=== PATIENT | female | born 1995 | race Caucasian/White ===

== ENCOUNTER → 2020-01-22 | Outpatient (REF) | payer OTHER | LOC: M PLALAB 13:10 | PROVIDERS: ATTEND Advanced Practice Midwife | DX: O20.0 Threatened abortion (principal); Z3A.00 Weeks of gestation of pregnancy not specified ==

== ENCOUNTER → 2020-01-24 | Outpatient (CLI) | payer OTHER | LOC: M LAB 14:49 | PROVIDERS: ATTEND Advanced Practice Midwife | DX: O20.0 Threatened abortion (principal) ==

== ENCOUNTER 2020-06-25 13:47 | Emergency (ER) | payer OTHER ==
[~2020-06-25] VITALS: Ht 177.8 cm; Wt 192.0 kg
[2020-06-25] MEDS ORDERED: MULTTAB20 PO (14:11)
[2020-06-25 16:02] LABS: BASO % 0.5 % (0.0-1.0); EOS # 0.2 10^3/uL (0.0-0.5); EOS % 2.4 % (0.0-3.0); HEMATOCRIT 38.8 % (36.0-47.0); HEMOGLOBIN 13.2 g/dl (12.0-15.5); LYMPH # 2.8 10^3/uL (1.5-5.0); LYMPH % 37.6 % (24.0-44.0); MEAN CORPUSCULAR HEMOGLOBIN 32.8 pg (27.0-33.0); MEAN CORPUSCULAR VOLUME 96.5 fl (80.0-96.0); MONO # 0.5 10^3/uL (0.0-0.8); MONO % 6.4 % (0.0-5.0); NEUTROPHILS # 3.9 10^3/uL (1.5-8.5); NEUTROPHILS % 52.7 % (36.0-66.0); PLATELET COUNT, AUTOMATED 285 10^3/uL (150-450); RED BLOOD COUNT 4.02 10^6/uL (4.00-5.40); WHITE BLOOD COUNT 7.5 10^3/uL (4.0-10.0)
[2020-06-25 17:09] LABS: CHLAMYDIA DNA AMPLIFICATION NEGATIVE (NEGATIVE); GC DNA AMPLIFICATION NEGATIVE (NEGATIVE)
[2020-06-25 18:00] VITALS: BP 119/65
[2020-06-26] MEDS ORDERED: IBUP80TA PO (13:41)
[2020-06-26] MEDS ORDERED: ZOFR4TAB16 PO (13:41)
[2020-06-26] MEDS ORDERED: OXYC1TAB23 PO (13:42)
== END 2020-06-25 18:05 | disposition home or self-care (01) ==
LOC: M ED 13:47
DX: O36.4XX1 Maternal care for intrauterine death, fetus 1 (principal); Z20.828 Contact with and (suspected) exposure to other viral communicable diseases
CPT/HCPCS: 36415; 84702; 85025; 86901; 87210; 87661; 99283; U0002

== ENCOUNTER 2020-06-26 09:56 | Day surgery (SDC) | payer OTHER ==
[~2020-06-26] VITALS: Ht 177.8 cm; Wt 88.5 kg
[~2020-06-26 09:56] MED LIST: MULTTAB20 PO
[2020-06-26 10:00] VITALS: BP 114/71
[2020-06-26] MEDS ORDERED: fentaNYL 100 MCG/2 ML INJECTION (J3010) As Ordered ONE ×2 (10:37→13:06)
[2020-06-26] MEDS ORDERED: MIDAZOLAM INJ 2MG/2ML VIAL (J2250 PER 1MG) As Ordered ONE (10:38)
[2020-06-26] MEDS ORDERED: LIDOCAINE 2% 100MG/5ML SDV (FOR ANES.) As Ordered ONE (10:38)
[2020-06-26] MEDS ORDERED: propofoL 200 MG/20 ML VIAL As Ordered ONE (10:38)
[2020-06-26] MEDS ORDERED: METOCLOPRAMIDE INJ 10MG/2ML VIAL (J2765 PER 1) As Ordered ONE (10:39)
[2020-06-26] MEDS ORDERED: KETOROLAC 60MG 2ML VIAL As Ordered ONE (10:39)
[2020-06-26] MEDS ORDERED: ONDANSETRON 4MG/2ML VIAL As Ordered ONE ×2 (10:39→13:05)
[2020-06-26] MEDS ORDERED: dexameTHASONE 4 MG/ML 1ML VIAL (J1100 PER 1MG) As Ordered ONE (10:39)
[2020-06-26] MEDS ORDERED: DOXYCYCLINE HYCLATE 100 MG in D5W MINI-BAG PLUS 100 ML IV ONE (11:00)
[2020-06-26] MEDS ORDERED: LR 1,000 ML IV SCH ×2 (11:00→14:00)
[2020-06-26] MEDS ORDERED: DOXYCYCLINE HYCLATE 100MG/10ML VIAL As Ordered ONE (11:22)
[2020-06-26 11:33] LABS: HEMATOCRIT 39.9 % (36.0-47.0); HEMOGLOBIN 13.7 g/dl (12.0-15.5); MEAN CORPUSCULAR HEMOGLOBIN 32.6 pg (27.0-33.0); MEAN CORPUSCULAR HGB CONC 34.3 g/dl (32.0-36.5); PLATELET COUNT, AUTOMATED 278 10^3/uL (150-450); WHITE BLOOD COUNT 5.8 10^3/uL (4.0-10.0)
[2020-06-26] MEDS ORDERED: DOXYCYCLINE HYCLATE 100MG/10ML VIAL IV ONE (11:44)
[2020-06-26] MEDS ORDERED: METHYLERGONOVINE MALEATE 0.2 MG/ML VIAL (J2210) As Ordered ONE (12:10)
[2020-06-26] MEDS ORDERED: oxyCODONE 5MG TAB As Ordered ONE (13:05)
--- NOTE | 2020-06-26 13:25 | ROOPDOC ---
[facility] Report Of Operation Report of Operation DATE OF PROCEDURE: 06/26/20 PREPROCEDURE DIAGNOSES: First trimester miscarriage, missed . POSTPROCEDURE DIAGNOSES: Same. PROCEDURE: Suction D&C. SURGEON: Skip Santo DO FACOG ELECTRONIC MUSICAL INSTRUMENT REPAIRER: none ANESTHESIA: General via LMA ESTIMATED BLOOD LOSS: Approximately 1100 mL. IV FLUIDS REPLACED: 1400 mL LR UOP: in and out cath, 200-300mL COMPLICATIONS: none. SPECIMENS: products of conception, intrauterine tissue. REMARKS: Transvaginal and Abdominal US done intraoperatively to confirm absence of retained products of conception. PREOPERATIVE / PROPHYLACTIC ANTIBIOTIC: Doxycycline 100mg IV x1. DESCRIPTION OF PROCEDURE: The patient was counseled, consented on the risks, benefits, indications and alternatives procedure. Informed consent was obtained. She was taken to the operating room with an IV running and placed on the operating table in dorsal supine position. Gen. anesthesia was administered and the airway was secured without any difficulty. She was prepared and draped in the normal sterile fashion. She was placed in the high lithotomy position. A time out was performed per protocol. The bladder was drained with a sterile in and out catheter. Sterile speculum was placed with good visualization of the cervix. The cervix was grasped with a single-tooth tenaculum at the anterior lip and downward traction was applied. The cervix was sequentially dilated with Ramo dilators up to a #20. A size 9 curved Vacurette was placed trans-cervically into the intrauterine cavity. Suction was activated. Tissue and blood return was consistent with products of conception. However,preoperatively she was reported to be approximately 8-9 weeks gestation, the amount of tissue obtained was not consistent with this gestation. Although she had a significant amount of bleeding initially, I expected more tissue. Methergine 0.2 mg IM was administered. The decision was made to perform an intraoperative ultrasound. With both transvaginal and abdominal ultrasound, there was no evidence of retained products of conception, there was no evidence of adnexal mass bilaterally or free fluid, and there was only evidence of a relatively large hematometra. The hematometra was evacuated under ultrasound guidance with a size 8 Vacurette. After removal of the Vacurette, a sharp curettage was performed with minimal tissue and blood return. Minimal bleeding from the cervical os was noted. The patient's vitals were normal and stable. The decision was made to conclude the procedure. Single-tooth tenaculum was removed from the cervix and the tenaculum sites were noted to be hemostatic. Again, minimal bleeding from the cervical os was noted. All instruments were removed from the vagina. Sponge and instrument counts were correct per protocol. The patient was transferred to the PACU in good and stable condition. Skip Santo DO FACOG. SKIP SANTO DO Jun 26, 2020 13:25
[2020-06-26] MEDS ORDERED: ZOFR4TAB16 PO (13:41)
[2020-06-26] MEDS ORDERED: IBUP80TA PO (13:41)
[2020-06-26] MEDS ORDERED: OXYC1TAB23 PO (13:42)
[2020-06-26 13:45] VITALS: BP 113/72
[2020-06-26] MEDS ORDERED: ONDANSETRON 4MG/2ML VIAL IV PRN (14:00)
[2020-06-26] MEDS ORDERED: PERCOCET 5MG/325MG TAB PO PRN (14:00)
[2020-06-26] MEDS ORDERED: DOCUSATE SODIUM 100 MG CAP PO PRN (14:00)
[2020-06-26] MEDS ORDERED: fentaNYL 100 MCG/2 ML INJECTION (J3010) IV PRN (14:00)
[2020-06-26] MEDS ORDERED: diphenhydrAMINE 50MG/ML VIAL (J1200) IV PRN (14:00)
[2020-06-26] MEDS ORDERED: oxyCODONE 5MG TAB PO PRN (14:00)
[2020-06-26] MEDS: LR 1,000 ML IV SCH ×2 (14:00→14:02)
[2020-06-26] MEDS ORDERED: PROMETHAZINE 25 MG TAB PO PRN (14:00)
[2020-06-26] MEDS ORDERED: ONDANSETRON 4 MG TAB PO PRN (14:00)
[2020-06-26] MEDS ORDERED: MORPHINE 4 MG/ML 1ML VIAL/SYRINGE (J2270) IV PRN (14:00)
[2020-06-26 14:45] VITALS: BP 123/74
[2020-06-26 16:32] LABS: HEMATOCRIT 32.2 % (36.0-47.0); MEAN CORPUSCULAR HEMOGLOBIN 32.8 pg (27.0-33.0); MEAN CORPUSCULAR HGB CONC 34.8 g/dl (32.0-36.5); MEAN CORPUSCULAR VOLUME 94.4 fl (80.0-96.0); PLATELET COUNT, AUTOMATED 253 10^3/uL (150-450); RED BLOOD COUNT 3.41 10^6/uL (4.00-5.40); WHITE BLOOD COUNT 11.2 10^3/uL (4.0-10.0)
[2020-06-26 16:36] LABS: HEMOGLOBIN 11.2 g/dl (12.0-15.5)
[2020-06-26] MEDS ORDERED: KETOROLAC 30 MG/ML 1ML VIAL IV PRN (17:00)
--- NOTE | 2020-06-26 18:07 | REPVR ---
PROCEDURE INFORMATION: Exam: US , Transvaginal Exam date and time: 06/26/2020 1:15 PM Age: 25 years old Clinical indication: Condition or disease; Lmp or gestational age (weeks): 8; Other: D&c; 1st ; ; Additional info: Intraoperative for bleeding TECHNIQUE: Imaging protocol: Real-time transvaginal obstetrical ultrasound of the maternal pelvis and a first trimester with image documentation. Transvaginal imaging was used for better evaluation of the fetus and adnexa. COMPARISON: No relevant prior studies available. FINDINGS: Gestation: No yolk sac demonstrated. No pole demonstrated. MATERNAL: Uterus: Uterus measures 11 x 7.3 x 7.5 cm. Endometrial echo complex measures 2.9 cm. Endometrial cavity filled with hypoechoic fluid with internal echoes consistent with hemorrhage. Other findings: Adnexal structures unremarkable. IMPRESSION: Widened endometrial cavity which appears to be filled with hypoechoic hemorrhage without evidence of a pole yolk sac or tissue. Findings consistent with postprocedural hemorrhage/early loss. Electronically signed by: Mahendra Cortes On 06/26/2020 18:06:48 PM
== END 2020-06-26 17:00 | disposition home or self-care (01) ==
LOC: M OPCLI5PR 09:56 → M MS5PR 09:56 → M OPCLI5PR 17:00
PROVIDERS: ATTEND Obstetrics & Gynecology
DX: O02.1 Missed abortion (principal)
CPT/HCPCS: 36415; 59820; 76817; 85027; 86850; 86900; 86901; 88305; J1100; J1885; J2210; J2250; J2405; J2765; J3010

== ENCOUNTER → 2021-04-15 | Outpatient (CLI) | payer OTHER ==
[~2021-04-15] MED LIST changes: +IBUP80TA PO; +OXYC1TAB23 PO; +ZOFR4TAB16 PO
== END ==
LOC: M PLALAB 09:08
PROVIDERS: ATTEND Obstetrics & Gynecology
DX: O20.9 Hemorrhage in early pregnancy, unspecified (principal); Z3A.00 Weeks of gestation of pregnancy not specified

== ENCOUNTER → 2021-04-17 | Outpatient (CLI) | payer OTHER | LOC: M LAB 08:36 | PROVIDERS: ATTEND Obstetrics & Gynecology | DX: O20.9 Hemorrhage in early pregnancy, unspecified (principal); Z3A.00 Weeks of gestation of pregnancy not specified ==

== ENCOUNTER → 2021-04-18 | Outpatient (REF) | payer OTHER | LOC: M PLALAB 09:49 | PROVIDERS: ATTEND Obstetrics & Gynecology | DX: Z53.9 Procedure and treatment not carried out, unspecified reason (principal) ==

== ENCOUNTER → 2021-04-18 | Outpatient (CLI) | payer OTHER ==
[2021-04-18 14:20] LABS: HEMATOCRIT 39.6 % (36.0-47.0); HEMOGLOBIN 13.7 g/dl (12.0-15.5); MEAN CORPUSCULAR HEMOGLOBIN 33.4 pg (27.0-33.0); MEAN CORPUSCULAR HGB CONC 34.6 g/dl (32.0-36.5); MEAN CORPUSCULAR VOLUME 96.6 fl (80.0-96.0); PLATELET COUNT, AUTOMATED 273 10^3/uL (150-450); WHITE BLOOD COUNT 6.6 10^3/uL (4.0-10.0)
[2021-04-18 14:58] LABS: GC DNA AMPLIFICATION NEGATIVE (NEGATIVE)
[2021-04-18 15:34] LABS: HIV 1&2 SCREEN CENTAUR NEGATIVE (NEGATIVE)
== END ==
LOC: M PLALAB 10:17
PROVIDERS: ATTEND Obstetrics & Gynecology
DX: O26.21 Pregnancy care for patient with recurrent pregnancy loss, first trimester (principal); Z3A.00 Weeks of gestation of pregnancy not specified

== ENCOUNTER → 2021-06-20 | Outpatient (CLI) | payer OTHER ==
--- NOTE | 2021-06-22 08:55 | REP ---
INDICATION: ANATOMY COMPARISON: None. TECHNIQUE: Transabdominal obstetrical ultrasound with color Doppler evaluation. FINDINGS: Examination demonstrates a single live intrauterine in variable presentation. motion is identified by technologist. Placenta is noted anterior and grade 1 without evidence for placenta previa or abruption. Amniotic fluid volume is normal. Cervix measures 5.1 cm in length and appears closed.. Selected gestational age: 20 weeks 0 days with YAMIL 11/07/2021. Gestational age by current measurements 21 weeks 0 days with YAMIL 10/31/2021. FHR equals 167 beats per minute. Estimated weight 401 grams (95thpercentile). Anatomical assessment demonstrates normal structures including cranium, choroid plexus, cavum, cerebellum/posterior fossa, facial features, lungs, four-chamber heart/ventricular outflow tracts, diaphragm, stomach, cord insertion/three-vessel cord, kidneys/bladder, and extremities. IMPRESSION: Single live intrauterine in variable presentation demonstrating upper normal growth. Limited evaluation of the spine. Remainder of the anatomical assessment is complete and normal. <Electronically signed by Beni Pena > 06/22/21 [id number]
== END ==
LOC: M WHC 11:05
PROVIDERS: ATTEND Advanced Practice Midwife
DX: Z34.82 Encounter for supervision of other normal pregnancy, second trimester (principal); Z3A.20 20 weeks gestation of pregnancy

== ENCOUNTER → 2021-08-02 | Outpatient (CLI) | payer OTHER ==
--- NOTE | 2021-08-02 13:35 | REP ---
INDICATION: F/U ANATOMY. FOLLOW-UP SPINE COMPARISON: 06/20/2021 TECHNIQUE: Transabdominal scanning FINDINGS: Multiple ultrasonographic images of the gravid uterus shows a single living intrauterine gestation in variable presentation. Doppler interrogation of the heart shows a heart rate of 150 beats per minute. The placenta is anterior and not low-lying. The cervix measures 4.6 cm in length and is closed. The subjective amniotic fluid volume is within normal limits. BPD: 7 cm 20 weeks 2 days HC: 25.8 cm 28 weeks 0 days AC: 23.6 cm 28 weeks 0 days FL: 5.1 cm 27 weeks 3 days The estimated weight is 1126 g which is greater than the 97th percentile. Secondary to the lie the spine spine was again seen suboptimally. IMPRESSION: Single living intrauterine gestation as described above with an estimated gestational age of 28 weeks 1 day via composite criteria and an estimated date of delivery of 10/24/2021 by today's exam. The spine was still seen suboptimally. Follow-up is recommended. <Electronically signed by Basilio Mckeon > 08/02/21 [id number]
== END ==
LOC: M WHC 08:56
PROVIDERS: ATTEND Advanced Practice Midwife
DX: O26.22 Pregnancy care for patient with recurrent pregnancy loss, second trimester (principal)

== ENCOUNTER → 2021-08-11 | Outpatient (CLI) | payer OTHER ==
[~2021-08-11] MED LIST changes: +COLA100C5 PO; +PERCOCET PO; +TUMS500C PO
[2021-08-11 14:01] LABS: HEMATOCRIT 37.4 % (36.0-47.0); HEMOGLOBIN 12.2 g/dl (12.0-15.5); MEAN CORPUSCULAR HGB CONC 32.6 g/dl (32.0-36.5); MEAN CORPUSCULAR VOLUME 101.1 fl (80.0-96.0); PLATELET COUNT, AUTOMATED 240 10^3/uL (150-450); WHITE BLOOD COUNT 9.3 10^3/uL (4.0-10.0)
== END ==
LOC: M PLALAB 08:40
PROVIDERS: ATTEND Advanced Practice Midwife
DX: O26.22 Pregnancy care for patient with recurrent pregnancy loss, second trimester (principal); Z3A.00 Weeks of gestation of pregnancy not specified
CPT/HCPCS: 36415; 82950; 85027; 86850; 86900; 86901; G0463

== ENCOUNTER → 2021-08-25 | Outpatient (CLI) | payer OTHER | LOC: M WHC 12:25 | PROVIDERS: ATTEND Obstetrics & Gynecology | DX: Z34.82 Encounter for supervision of other normal pregnancy, second trimester (principal); Z3A.32 32 weeks gestation of pregnancy ==

== ENCOUNTER 2021-10-08 23:15 | Outpatient (CLI) | payer OTHER ==
[~2021-10-08] VITALS: Ht 177.8 cm; Wt 111.2 kg
[~2021-10-08 23:15] MED LIST changes: -COLA100C5 PO; -PERCOCET PO; -TUMS500C PO
[2021-10-08 23:50] VITALS: BP 123/85
[2021-10-09 00:25] VITALS: BP 130/60
[2021-10-09 01:27] VITALS: BP 126/63
[2021-10-09 02:35] VITALS: BP 131/66
== END 2021-10-09 02:55 | disposition home or self-care (01) ==
LOC: M LDO 23:15
PROVIDERS: ATTEND Obstetrics & Gynecology
DX: O26.893 Other specified pregnancy related conditions, third trimester (principal); R07.9 Chest pain, unspecified; O12.03 Gestational edema, third trimester; Z3A.35 35 weeks gestation of pregnancy
CPT/HCPCS: 59025; 93005; G0378; G0463

== ENCOUNTER → 2021-10-14 | Outpatient (REF) | payer OTHER ==
[~2021-10-14] MED LIST changes: +COLA100C5 PO; +PERCOCET PO; +TUMS500C PO
== END ==
LOC: M SFHCWAGY 12:37
PROVIDERS: ATTEND Obstetrics & Gynecology
DX: Z34.83 Encounter for supervision of other normal pregnancy, third trimester (principal); Z3A.00 Weeks of gestation of pregnancy not specified
CPT/HCPCS: 87081; G0463

== ENCOUNTER → 2021-10-17 | Outpatient (CLI) | payer OTHER ==
[~2021-10-17] MED LIST changes: -COLA100C5 PO; -PERCOCET PO; -TUMS500C PO
== END ==
LOC: M WHC 08:53
PROVIDERS: ATTEND Advanced Practice Midwife
DX: Z34.83 Encounter for supervision of other normal pregnancy, third trimester (principal); Z3A.37 37 weeks gestation of pregnancy

== ENCOUNTER 2021-10-31 17:21 | Inpatient (IN) | payer OTHER ==
[~2021-10-31] VITALS: Ht 177.8 cm; Wt 112.8 kg
[~2021-10-31 17:21] MED LIST changes: -COLA100C5 PO; -PERCOCET PO; -TUMS500C PO
[2021-10-31 17:46] VITALS: BP 146/83
[2021-10-31] MEDS ORDERED: TUMS500C PO (17:48)
[2021-10-31 17:50] VITALS: BP 133/85
[2021-10-31] MEDS ORDERED: LACTATED RINGER'S 1000 ML IV STA (18:33)
[2021-10-31] MEDS ORDERED: METHYLERGONOVINE MALEATE 0.2 MG/ML VIAL (J2210) IM PRN (18:35)
[2021-10-31] MEDS ORDERED: TRANEXAMIC ACID INJection 1,000 MG in NS 100 ML IV PRN (18:35)
[2021-10-31] MEDS ORDERED: OXYTOCIN DRIP 30 UNITS in IV 1 EA IV PRN (18:35)
[2021-10-31] MEDS ORDERED: LR 1,000 ML IV SCH ×3 (18:35→22:40)
[2021-10-31] MEDS ORDERED: ceFAZolin SOD 2 GM in IV 1 EA IV ONE (18:35)
[2021-10-31] MEDS ORDERED: CARBOPROST TROMETHAMINE 250 MCG/ML AMP IM PRN (18:35)
[2021-10-31] MEDS ORDERED: BICITRA 30ML SOLN UDC PO ONE (18:35)
[2021-10-31 19:07] LABS: HEMATOCRIT 35.4 % (36.0-47.0); HEMOGLOBIN 11.9 g/dl (12.0-15.5); MEAN CORPUSCULAR HEMOGLOBIN 32.4 pg (27.0-33.0); MEAN CORPUSCULAR HGB CONC 33.6 g/dl (32.0-36.5); MEAN CORPUSCULAR VOLUME 96.5 fl (80.0-96.0); PLATELET COUNT, AUTOMATED 196 10^3/uL (150-450); RED BLOOD COUNT 3.67 10^6/uL (4.00-5.40); WHITE BLOOD COUNT 8.3 10^3/uL (4.0-10.0)
[2021-10-31 20:42] VITALS: BP 128/85
[2021-10-31] MEDS ORDERED: fentaNYL 100 MCG/2 ML INJECTION As Ordered ONE (20:42)
[2021-10-31] MEDS ORDERED: OXYTOCIN INJ 10 UNITS/ML VIAL (J2590) As Ordered ONE (20:42)
[2021-10-31] MEDS ORDERED: MORPHINE PRES-FREE INJ 10 MG/10 ML VIAL (J2274) As Ordered ONE (20:42)
[2021-10-31] MEDS ORDERED: ONDANSETRON 4MG/2ML VIAL As Ordered ONE (20:42)
[2021-10-31] MEDS ORDERED: dexameTHASONE 4 MG/ML 1ML VIAL (J1100 PER 1MG) As Ordered ONE (20:42)
[2021-10-31] MEDS ORDERED: KETOROLAC 60MG 2ML VIAL As Ordered ONE (20:42)
[2021-10-31] MEDS ORDERED: METOCLOPRAMIDE INJ 10MG/2ML VIAL (J2765 PER 1) IV PRN (21:12)
[2021-10-31] MEDS ORDERED: NALOXONE INJ 0.4MG/1ML VIAL (J2310 PER 1MG) IV PRN ×2 (21:12)
[2021-10-31] MEDS ORDERED: NALBUPHINE HCL 10 MG/ML AMP (J2300) IV PRN (21:12)
[2021-10-31] MEDS ORDERED: diphenhydrAMINE 50MG/ML VIAL (J1200) IV PRN (21:12)
[2021-10-31] MEDS ORDERED: ONDANSETRON 4MG/2ML VIAL IV PRN ×3 (21:12→22:40)
[2021-10-31] MEDS ORDERED: RHOGAM 300 MCG (1500 IU) INJ (J2790) IM SCH (22:20)
[2021-10-31] MEDS ORDERED: PERCOCET 5MG/325MG TAB PO PRN ×2 (22:20)
[2021-10-31] MEDS ORDERED: SIMETHICONE 80MG CHEW TAB PO PRN (22:20)
[2021-10-31] MEDS ORDERED: OXYTOCIN DRIP 30 UNITS in IV 1 EA IV SCH (22:20)
[2021-10-31] MEDS ORDERED: MEASLES,MUMPS,RUBELLA VACCINE INJ (MMR-II) (90707) SC SCH (22:20)
[2021-10-31] MEDS ORDERED: IBUP80TA PO (22:26)
[2021-10-31] MEDS ORDERED: COLA100C5 PO (22:26)
[2021-10-31] MEDS ORDERED: PERCOCET PO (22:26)
[2021-10-31] MEDS ORDERED: MEPERIDINE INJ 25 MG/ML VIAL (J2175) IV PRN (22:40)
[2021-10-31] MEDS ORDERED: fentaNYL 100 MCG/2 ML INJECTION IV PRN (22:40)
[2021-10-31] MEDS ORDERED: NORCO, ANEXSIA 5/325MG TABLET (HYDROcodone/ACETAMINOPHEN) PO PRN (22:40)
[2021-11-01] VITALS (12 sets, daily range): BP systolic 111–134; BP diastolic 54–80
[2021-11-01] MEDS: KETOROLAC 30 MG/ML 1ML VIAL IV SCH ×3 (03:20→14:57)
[2021-11-01 06:50] LABS: HEMATOCRIT 31.7 % (36.0-47.0); HEMOGLOBIN 10.5 g/dl (12.0-15.5); MEAN CORPUSCULAR HEMOGLOBIN 32.4 pg (27.0-33.0); MEAN CORPUSCULAR HGB CONC 33.1 g/dl (32.0-36.5); MEAN CORPUSCULAR VOLUME 97.8 fl (80.0-96.0); PLATELET COUNT, AUTOMATED 177 10^3/uL (150-450); RED BLOOD COUNT 3.24 10^6/uL (4.00-5.40); WHITE BLOOD COUNT 12.3 10^3/uL (4.0-10.0)
[2021-11-01] MEDS: DOCUSATE SODIUM 100MG CAPSULE PO SCH ×2 (09:00→20:47)
[2021-11-01] MEDS: PRENATAL VITAMINS CHEWABLE TABLET PO SCH (09:01)
[2021-11-01] MEDS: IBUPROFEN 800 MG TAB PO SCH (23:17)
[2021-11-02 02:10] VITALS: BP 126/69
[2021-11-02 06:00] VITALS: BP 134/89
[2021-11-02] MEDS: IBUPROFEN 800 MG TAB PO SCH ×2 (06:21→14:35)
[2021-11-02 10:01] VITALS: BP 118/69
[2021-11-02] MEDS: PRENATAL VITAMINS CHEWABLE TABLET PO SCH (10:01)
[2021-11-02] MEDS: DOCUSATE SODIUM 100MG CAPSULE PO SCH (10:01)
[2021-11-02 14:00] VITALS: BP 118/63
== END 2021-11-02 15:45 | disposition home or self-care (01) | DRG 773 ==
LOC: M LDI 17:21 → M OBS 23:55
PROVIDERS: ADMIT Advanced Practice Midwife; ATTEND Advanced Practice Midwife
PROC: 10D00Z1 Extraction of Products of Conception, Low, Open Approach (ICD-10-PCS; principal; 2021-10-31 21:00)
DX: O41.03X0 Oligohydramnios, third trimester, not applicable or unspecified (principal); Z37.0 Single live birth; Z3A.39 39 weeks gestation of pregnancy; O36.60X0 Maternal care for excessive fetal growth, unspecified trimester, not applicable or unspecified

== ENCOUNTER → 2021-10-31 | Outpatient (CLI) | payer OTHER ==
[~2021-10-31] MED LIST changes: +COLA100C5 PO; +PERCOCET PO; +TUMS500C PO
== END ==
LOC: M WHC 09:02
PROVIDERS: ATTEND Advanced Practice Midwife
DX: O36.63X0 Maternal care for excessive fetal growth, third trimester, not applicable or unspecified (principal)

== ENCOUNTER → 2022-02-03 | Outpatient (REF) | payer OTHER ==
[~2022-02-03] MED LIST changes: +COLA100C5 PO; +PERCOCET PO; +TUMS500C PO
[2022-02-03 19:23] LABS: GC DNA AMPLIFICATION NEGATIVE (NEGATIVE)
== END ==
LOC: M SFHCWAGY 17:19
PROVIDERS: ATTEND Obstetrics & Gynecology
DX: Z12.4 Encounter for screening for malignant neoplasm of cervix (principal); Z11.3 Encounter for screening for infections with a predominantly sexual mode of transmission
CPT/HCPCS: 87661; 87810; 87850; G0123

== ENCOUNTER → 2022-12-23 | Outpatient (CLI) | payer OTHER ==
[2022-12-23 09:51] LABS: BASO # 0.1 10^3/uL (0.0-0.2); BASO % 0.8 % (0.0-1.0); EOS # 0.2 10^3/uL (0.0-0.5); EOS % 2.8 % (0.0-3.0); HEMATOCRIT 39.5 % (36.0-47.0); HEMOGLOBIN 13.4 g/dl (12.0-15.5); LYMPH # 2.8 10^3/uL (1.5-5.0); MEAN CORPUSCULAR HEMOGLOBIN 31.9 pg (27.0-33.0); MEAN CORPUSCULAR HGB CONC 33.9 g/dl (32.0-36.5); MONO # 0.4 10^3/uL (0.0-0.8); MONO % 6.2 % (2.0-8.0); NEUTROPHILS # 2.9 10^3/uL (1.5-8.5); NEUTROPHILS % 45.9 % (36.0-66.0); PLATELET COUNT, AUTOMATED 276 10^3/uL (150-450); WHITE BLOOD COUNT 6.3 10^3/uL (4.0-10.0)
[2022-12-23 10:34] LABS: ALBUMIN 3.9 G/DL (3.2-5.2); ALKALINE PHOSPHATASE 73 U/L (46-116); ALT/SGPT 17 U/L (7.0-40); AST/SGOT 15 U/L (<34); BILIRUBIN,TOTAL 0.5 MG/DL (0.3-1.2); BLOOD UREA NITROGEN 7 MG/DL (9-23); CARBON DIOXIDE LEVEL 25 MMOL/L (20-31); CHLORIDE LEVEL 109 MMOL/L (98-107); CREATININE FOR GFR 0.64 MG/DL (0.55-1.30); FREE T4 0.74 NG/DL (0.89-1.76); GLOMERULAR FILTRATION RATE > 60.0 (>60); GLUCOSE, FASTING 85 MG/DL (60-100); POTASSIUM SERUM 4.3 MMOL/L (3.5-5.1); SODIUM LEVEL 136 MMOL/L (136-145); TOTAL PROTEIN 6.6 G/DL (5.7-8.2)
[2022-12-23 10:41] LABS: THYROID STIMULATING HORMONE 10.027 uIU/ML (0.55-4.78)
== END ==
LOC: M LAB 09:10
PROVIDERS: ATTEND Student in an Organized Health Care Education/Training Program
DX: R53.83 Other fatigue (principal)

== ENCOUNTER → 2023-02-26 | Outpatient (CLI) | payer OTHER ==
[2023-02-26 18:58] LABS: FREE T4 0.96 NG/DL (0.89-1.76); THYROID STIMULATING HORMONE 7.386 uIU/ML (0.55-4.78)
== END ==
LOC: M LAB 17:18
PROVIDERS: ATTEND Student in an Organized Health Care Education/Training Program
DX: E03.9 Hypothyroidism, unspecified (principal)

== ENCOUNTER → 2023-04-23 | Outpatient (REF) | payer OTHER ==
[2023-04-23 20:02] LABS: FREE T4 0.97 NG/DL (0.89-1.76); THYROID STIMULATING HORMONE 1.385 uIU/ML (0.55-4.78)
== END ==
LOC: M SFHCLERA 19:39
PROVIDERS: ATTEND Student in an Organized Health Care Education/Training Program
DX: E03.9 Hypothyroidism, unspecified (principal)

== ENCOUNTER → 2023-05-22 | Outpatient (CLI) | payer OTHER ==
[2023-05-22 18:19] LABS: HEMATOCRIT 38.1 % (36.0-47.0); HEMOGLOBIN 12.9 g/dl (12.0-15.5); MEAN CORPUSCULAR HEMOGLOBIN 31.7 pg (27.0-33.0); MEAN CORPUSCULAR HGB CONC 33.9 g/dl (32.0-36.5); MEAN CORPUSCULAR VOLUME 93.6 fl (80.0-96.0); PLATELET COUNT, AUTOMATED 265 10^3/uL (150-450); RED BLOOD COUNT 4.07 10^6/uL (4.00-5.40); WHITE BLOOD COUNT 7.7 10^3/uL (4.0-10.0)
[2023-05-22 18:48] LABS: THYROID STIMULATING HORMONE 4.267 uIU/ML (0.55-4.78)
[2023-05-22 18:49] LABS: FREE T4 1.04 NG/DL (0.89-1.76)
[2023-05-22 19:14] LABS: GC DNA AMPLIFICATION NEGATIVE (NEGATIVE)
[2023-05-22 19:19] LABS: HIV 1&2 SCREEN NEGATIVE (NEGATIVE)
[2023-05-22 19:27] LABS: HEPATITIS C VIRUS ABY INDEX 0.14 INDEX (<0.8)
== END ==
LOC: M PLALAB 15:03
PROVIDERS: ATTEND Advanced Practice Midwife
DX: Z34.91 Encounter for supervision of normal pregnancy, unspecified, first trimester (principal); Z3A.00 Weeks of gestation of pregnancy not specified
CPT/HCPCS: 36415; 84439; 84443; 85027; 86762; 86780; 86803; 86850; 86900; 86901; 87086; 87340; 87389; 87810; 87850; G0463

== ENCOUNTER → 2023-05-22 | Outpatient (CLI) | payer OTHER | LOC: M PLALAB 15:01 | PROVIDERS: ATTEND Student in an Organized Health Care Education/Training Program | DX: Z34.80 Encounter for supervision of other normal pregnancy, unspecified trimester (principal); Z3A.00 Weeks of gestation of pregnancy not specified ==

== ENCOUNTER → 2023-07-19 | Outpatient (CLI) | payer OTHER | LOC: M WHC 09:11 | PROVIDERS: ATTEND Obstetrics & Gynecology | DX: Z34.92 Encounter for supervision of normal pregnancy, unspecified, second trimester (principal) ==

== ENCOUNTER → 2023-08-06 | Outpatient (CLI) | payer OTHER | LOC: M WHC 09:50 | PROVIDERS: ATTEND Obstetrics & Gynecology | DX: O34.211 Maternal care for low transverse scar from previous cesarean delivery (principal); O44.42 Low lying placenta NOS or without hemorrhage, second trimester; Z3A.22 22 weeks gestation of pregnancy ==

== ENCOUNTER → 2023-08-27 | Outpatient (CLI) | payer OTHER ==
[2023-08-27 16:05] LABS: HEMATOCRIT 36.6 % (36.0-47.0); HEMOGLOBIN 12.4 g/dl (12.0-15.5); MEAN CORPUSCULAR HEMOGLOBIN 33.3 pg (27.0-33.0); MEAN CORPUSCULAR HGB CONC 33.9 g/dl (32.0-36.5); MEAN CORPUSCULAR VOLUME 98.4 fl (80.0-96.0); PLATELET COUNT, AUTOMATED 256 10^3/uL (150-450); RED BLOOD COUNT 3.72 10^6/uL (4.00-5.40)
[2023-08-27 17:33] LABS: CHLAMYDIA DNA AMPLIFICATION NEGATIVE (NEGATIVE); GC DNA AMPLIFICATION NEGATIVE (NEGATIVE)
== END ==
LOC: M PLALAB 12:38
PROVIDERS: ATTEND Obstetrics & Gynecology
DX: O34.211 Maternal care for low transverse scar from previous cesarean delivery (principal); Z3A.00 Weeks of gestation of pregnancy not specified
CPT/HCPCS: 36415; 82950; 85027; 86850; 86900; 86901; 87810; 87850; G0463

== ENCOUNTER → 2023-09-27 | Outpatient (CLI) | payer OTHER ==
[2023-09-27 18:08] LABS: FREE T4 1.03 NG/DL (0.89-1.76); THYROID STIMULATING HORMONE 2.459 uIU/ML (0.55-4.78)
== END ==
LOC: M PLALAB 15:47
PROVIDERS: ATTEND Advanced Practice Midwife
DX: O99.283 Endocrine, nutritional and metabolic diseases complicating pregnancy, third trimester (principal)

== ENCOUNTER → 2023-10-18 | Outpatient (CLI) | payer OTHER | LOC: M WHC 13:12 | PROVIDERS: ATTEND Advanced Practice Midwife | DX: O99.283 Endocrine, nutritional and metabolic diseases complicating pregnancy, third trimester (principal); Z3A.32 32 weeks gestation of pregnancy ==

== ENCOUNTER → 2023-11-13 | Outpatient (REF) | payer OTHER | LOC: M PLALAB 14:06 | PROVIDERS: ATTEND Obstetrics & Gynecology | DX: Z3A.36 36 weeks gestation of pregnancy (principal) ==

== ENCOUNTER 2023-12-05 04:56 | Inpatient (IN) | payer OTHER ==
[~2023-12-05] VITALS: Ht 177.8 cm; Wt 106.4 kg
[2023-12-05] VITALS (10 sets, daily range): BP systolic 113–137; BP diastolic 56–89; TEMP 98.1; O2SAT 95–100
[~2023-12-05 04:56] MED LIST changes: +SYNT125T PO
[2023-12-05] MEDS: LR 1,000 ML IV SCH ×4 (05:05→09:50)
[2023-12-05] MEDS ORDERED: LIDOCAINE 1% SDV 5ML VIAL SC PRN (05:05)
[2023-12-05] MEDS ORDERED: HOME MED LIST COMPLETE! XX SCH (05:30)
[2023-12-05 05:48] LABS: HEMOGLOBIN 12.3 g/dl (12.0-15.5); MEAN CORPUSCULAR HEMOGLOBIN 33.2 pg (27.0-33.0); MEAN CORPUSCULAR HGB CONC 34.2 g/dl (32.0-36.5); MEAN CORPUSCULAR VOLUME 97.3 fl (80.0-96.0); PLATELET COUNT, AUTOMATED 147 10^3/uL (150-450); WHITE BLOOD COUNT 6.2 10^3/uL (4.0-10.0)
[2023-12-05] MEDS: LACTATED RINGER'S 1000 ML IV STA (06:32)
[2023-12-05] MEDS ORDERED: BICITRA 30ML SOLN UDC As Ordered ONE (07:18)
[2023-12-05] MEDS: BICITRA 30ML SOLN UDC PO ONE (07:24)
[2023-12-05] MEDS: ceFAZolin SOD 2 GM in IV 1 EA IV ONE (07:24)
[2023-12-05] MEDS ORDERED: ONDANSETRON 4MG 2ML VIAL As Ordered ONE (08:13)
[2023-12-05] MEDS ORDERED: KETOROLAC 60MG 2ML VIAL As Ordered ONE (08:13)
[2023-12-05] MEDS ORDERED: METOCLOPRAMIDE INJ 10MG/2ML VIAL As Ordered ONE (08:13)
[2023-12-05] MEDS ORDERED: ACETAMINOPHEN 1000MG 100ML IV BAG As Ordered ONE (08:13)
[2023-12-05] MEDS ORDERED: MORPHINE PRES-FREE INJ 10 MG/10 ML VIAL As Ordered ONE (08:13)
[2023-12-05] MEDS ORDERED: PHENYLephrine 500MCG 5ML (100MCG/ML) SYRINGE As Ordered ONE (08:13)
[2023-12-05] MEDS ORDERED: OXYTOCIN 30UNITS IN 0.9% NaCl 500ML IV BAG As Ordered ONE (08:13)
[2023-12-05] MEDS ORDERED: ePHEDrine SULFATE 25 MG/5 ML(5MG/ML) SYRINGE As Ordered ONE (08:34)
[2023-12-05] MEDS ORDERED: METOCLOPRAMIDE INJ 10MG/2ML VIAL IV PRN (09:05)
[2023-12-05] MEDS ORDERED: **NOTE PATIENT COMMENT** MISC XX SCH (09:05)
[2023-12-05] MEDS ORDERED: ACETAMINOPHEN 500 MG TAB PO PRN (09:05)
[2023-12-05] MEDS ORDERED: ONDANSETRON 4MG 2ML VIAL IV PRN (09:05)
[2023-12-05] MEDS ORDERED: NALOXONE INJ 0.4MG/1ML VIAL IV PRN ×2 (09:05)
[2023-12-05] MEDS ORDERED: ANUSOL HC CREAM 30GM TOP PRN (09:05)
[2023-12-05] MEDS ORDERED: MORPHINE 4 MG/ML 1ML VIAL IV PRN (09:05)
[2023-12-05] MEDS ORDERED: METHYLERGONOVINE MALEATE 0.2MG/ML 1ML VIAL IM PRN (09:05)
[2023-12-05] MEDS ORDERED: SIMETHICONE 80MG CHEW TAB PO PRN (09:05)
[2023-12-05] MEDS ORDERED: oxyCODONE 5MG TAB PO PRN (09:05)
[2023-12-05] MEDS ORDERED: fentaNYL 100 MCG/2 ML INJECTION IV PRN (09:05)
[2023-12-05] MEDS ORDERED: diphenhydrAMINE 50MG/ML VIAL IV PRN (09:05)
[2023-12-05] MEDS ORDERED: RHOGAM 300MCG (1500IU) INJ IM SCH (09:05)
[2023-12-05] MEDS: OXYTOCIN DRIP 30 UNITS in IV 1 EA IV SCH (09:24)
[2023-12-05] MEDS: DOCUSATE SODIUM 100MG CAPSULE PO SCH (10:07)
[2023-12-05] MEDS: PRENATAL VITAMINS CHEWABLE TABLET PO SCH (10:08)
[2023-12-05] MEDS: SLF 3 ML SYR IV SCH (10:34)
[2023-12-05] MEDS: METOCLOPRAMIDE INJ 10MG/2ML VIAL IV PRN (14:56)
[2023-12-05] MEDS: KETOROLAC 30 MG/ML 1ML VIAL IV SCH (14:56)
[2023-12-06 02:00] VITALS: BP 122/57; O2SAT 98
[2023-12-06 06:00] VITALS: BP 118/69; O2SAT 98
[2023-12-06 07:01] LABS: HEMATOCRIT 31.2 % (36.0-47.0); HEMOGLOBIN 10.4 g/dl (12.0-15.5); MEAN CORPUSCULAR HEMOGLOBIN 33.7 pg (27.0-33.0); MEAN CORPUSCULAR HGB CONC 33.3 g/dl (32.0-36.5); PLATELET COUNT, AUTOMATED 145 10^3/uL (150-450); RED BLOOD COUNT 3.09 10^6/uL (4.00-5.40)
[2023-12-06] MEDS ORDERED: FLUTICASONE PROP 0.05% NASAL SPRAY 16 GM (FLONASE) NARES SCH (09:00)
[2023-12-06] MEDS: PERCOCET 5MG/325MG TAB PO PRN ×2 (09:19→18:18)
[2023-12-06] MEDS: IBUPROFEN 800 MG TAB PO SCH (11:10)
[2023-12-06] MEDS: FLUTICASONE PROP 0.05% NASAL SPRAY 16 GM (FLONASE) NARES SCH (13:47)
[2023-12-06 14:00] VITALS: BP 129/59; O2SAT 99
[2023-12-06 18:00] VITALS: BP 133/70; O2SAT 99
[2023-12-06 22:00] VITALS: BP 120/68; O2SAT 98
[2023-12-07 02:00] VITALS: BP 128/75; O2SAT 99
[2023-12-07 06:00] VITALS: BP 111/68; O2SAT 99
[2023-12-07] MEDS: MEASLES,MUMPS,RUBELLA VACCINE INJ (MMR-II) SC.IMMUN ONE (08:30)
[2023-12-07 10:00] VITALS: BP 107/65; O2SAT 98
[2023-12-07 14:00] VITALS: BP 121/66; O2SAT 99
[2023-12-07 18:00] VITALS: BP 127/79; O2SAT 95
[2023-12-08 06:00] VITALS: BP 116/67; O2SAT 97
== END 2023-12-08 12:10 | disposition home or self-care (01) | DRG 773 ==
LOC: M LDI 04:56 → M OBS 10:10
PROVIDERS: ADMIT Obstetrics & Gynecology; ATTEND Obstetrics & Gynecology
PROC: 10D00Z1 Extraction of Products of Conception, Low, Open Approach (ICD-10-PCS; principal; 2023-12-05 07:30)
DX: O34.211 Maternal care for low transverse scar from previous cesarean delivery (principal); Z37.0 Single live birth; Z3A.39 39 weeks gestation of pregnancy

== ENCOUNTER → 2024-02-09 | Outpatient (CLI) | payer OTHER ==
[2024-02-09 11:58] LABS: BASO % 0.5 % (0.0-1.0); EOS # 0.2 10^3/uL (0.0-0.5); HEMATOCRIT 41.1 % (36.0-47.0); HEMOGLOBIN 13.7 g/dl (12.0-15.5); LYMPH # 2.5 10^3/uL (1.5-5.0); LYMPH % 41.6 % (24.0-44.0); MEAN CORPUSCULAR HEMOGLOBIN 31.4 pg (27.0-33.0); MEAN CORPUSCULAR HGB CONC 33.3 g/dl (32.0-36.5); MEAN CORPUSCULAR VOLUME 94.1 fl (80.0-96.0); MONO # 0.4 10^3/uL (0.0-0.8); MONO % 6.7 % (2.0-8.0); NEUTROPHILS # 2.9 10^3/uL (1.5-8.5); PLATELET COUNT, AUTOMATED 329 10^3/uL (150-450); RED BLOOD COUNT 4.37 10^6/uL (4.00-5.40); WHITE BLOOD COUNT 5.9 10^3/uL (4.0-10.0)
[2024-02-09 12:18] LABS: ALBUMIN 3.9 G/DL (3.2-5.2); ALKALINE PHOSPHATASE 83 U/L (46-116); ALT/SGPT 47 U/L (7.0-40); AST/SGOT 22 U/L (<34); BILIRUBIN,TOTAL 0.5 MG/DL (0.3-1.2); BLOOD UREA NITROGEN 9 MG/DL (9-23); CALCIUM LEVEL 9.4 MG/DL (8.5-10.1); CARBON DIOXIDE LEVEL 27 MMOL/L (20-31); CHLORIDE LEVEL 107 MMOL/L (98-107); CREATININE FOR GFR 0.62 MG/DL (0.55-1.30); GLOMERULAR FILTRATION RATE > 60.0 (>60); GLUCOSE, FASTING 89 MG/DL (60-100); POTASSIUM SERUM 4.5 MMOL/L (3.5-5.1); SODIUM LEVEL 140 MMOL/L (136-145); TOTAL PROTEIN 6.9 G/DL (5.7-8.2)
[2024-02-09 12:19] LABS: FREE T4 1.56 NG/DL (0.89-1.76); THYROID STIMULATING HORMONE 0.019 uIU/ML (0.55-4.78)
[2024-02-09 12:20] LABS: TOTAL 25(OH) VITAMIN D 27.6 NG/ML (20.0-100.0)
[2024-02-09 12:21] LABS: VITAMIN B12 LEVEL 1353 PG/ML (211-911)
[2024-02-09 12:22] LABS: FOLATE > 24.0 NG/ML (>5.4)
== END ==
LOC: M RAD 10:40
PROVIDERS: ATTEND Physician Assistant
DX: M54.9 Dorsalgia, unspecified (principal); E03.9 Hypothyroidism, unspecified; F90.9 Attention-deficit hyperactivity disorder, unspecified type; F41.9 Anxiety disorder, unspecified

== ENCOUNTER → 2024-04-09 | Outpatient (REF) | payer OTHER ==
[2024-04-11 12:27] LABS: HPV APTIMA Not Detected (Not Detected)
== END ==
LOC: M SFHCWAGY 17:12
PROVIDERS: ATTEND Obstetrics & Gynecology
DX: Z12.4 Encounter for screening for malignant neoplasm of cervix (principal)

== ENCOUNTER → 2024-10-15 | Outpatient (REF) | payer OTHER ==
[2024-10-15 17:31] LABS: ALBUMIN 4.3 G/DL (3.2-5.2); ALKALINE PHOSPHATASE 74 U/L (35-104); ALT/SGPT 15 U/L (7.0-40); AST/SGOT 14 U/L (<34); BILIRUBIN,TOTAL 0.5 MG/DL (0.3-1.2); BLOOD UREA NITROGEN 10 MG/DL (9-23); CALCIUM LEVEL 9.2 MG/DL (8.5-10.1); CARBON DIOXIDE LEVEL 28 MMOL/L (20-31); CHLORIDE LEVEL 109 MMOL/L (98-107); CREATININE FOR GFR 0.61 MG/DL (0.55-1.30); GLOMERULAR FILTRATION RATE > 60.0 (>60); GLUCOSE, FASTING 76 MG/DL (60-100); POTASSIUM SERUM 4.4 MMOL/L (3.5-5.1); SODIUM LEVEL 142 MMOL/L (136-145); TOTAL PROTEIN 7.4 G/DL (5.7-8.2)
[2024-10-15 17:32] LABS: THYROID STIMULATING HORMONE 9.111 uIU/ML (0.55-4.78); TOTAL 25(OH) VITAMIN D 25.4 NG/ML (20.0-100.0)
[2024-10-15 17:33] LABS: FREE T4 1.18 NG/DL (0.89-1.76)
[2024-10-15 17:35] LABS: BASO # 0.1 10^3/uL (0.0-0.2); BASO % 0.9 % (0.0-1.0); EOS # 0.1 10^3/uL (0.0-0.5); EOS % 1.6 % (0.0-3.0); HEMATOCRIT 40.5 % (36.0-47.0); HEMOGLOBIN 13.6 g/dl (12.0-15.5); LYMPH # 2.5 10^3/uL (1.5-5.0); LYMPH % 44.8 % (24.0-44.0); MEAN CORPUSCULAR HEMOGLOBIN 31.3 pg (27.0-33.0); MEAN CORPUSCULAR HGB CONC 33.6 g/dl (32.0-36.5); MEAN CORPUSCULAR VOLUME 93.3 fl (80.0-96.0); MONO # 0.3 10^3/uL (0.0-0.8); MONO % 4.8 % (2.0-8.0); NEUTROPHILS # 2.7 10^3/uL (1.5-8.5); NEUTROPHILS % 47.9 % (36.0-66.0); PLATELET COUNT, AUTOMATED 304 10^3/uL (150-450); RED BLOOD COUNT 4.34 10^6/uL (4.00-5.40); WHITE BLOOD COUNT 5.6 10^3/uL (4.0-10.0)
== END ==
LOC: M SFHCLERA 10:58
DX: E03.9 Hypothyroidism, unspecified (principal); E55.9 Vitamin D deficiency, unspecified